=== PATIENT | female | born 1995 | race Caucasian/White ===

== ENCOUNTER 2022-12-30 02:21 | Day surgery (SDC) | payer OTHER, SELFPAY ==
--- NOTE | 2022-12-27 12:24 | PC.NURSE ---
Report to the Outpatient Waiting Room, entrance under the green pavilion located off [facility], at time 0600 on date 12/30/22. Planned Procedure Time: 0730. Time changes happen often and if your time is changed the preop area will call you the afternoon before. - You and your visitor will be asked to self-screen and do not enter if you have any COVID symptoms. - A mask is optional within the hospital at this time. Patients may have clear liquids (water, carbonated beverages, clear teas, apple juice) until 3 hours prior to surgery with a maximum of 20 ounces. - No food from midnight until time of surgery Take the following medications with a SIP of water the morning of surgery: NONE DO NOT STOP ANY OF YOUR OTHER PRESCRIPTION MEDICATIONS PRIOR TO SURGERY EXCEPT THE FOLLOWING Medications to discontinue per physician: VITAMINS Date to take last dose: NO MORE UNTIL AFTER SURGERY Please no make-up, nail swedish, hairspray, perfume, deodorant, or body powder the day of surgery. No jewelry (including any body piercings) or valuables the day of surgery, leave them at home. Please take a shower or bath the night before, or the morning of, surgery with an antibacterial soap. Wear comfortable, loose fitting clothing. - Jewelry must be removed prior to entering the operating room. Rings and piercings that are not removed may be cut off. - The hospital will not accept responsibility for valuables. - Please leave all valuables, including medications, at home the day of surgery. If you are going home after surgery, a licensed medical delivery driver must drive you home. - NO public transportation without another adult if you receive anesthesia. - We recommend that an adult stay with you for 24 hours following discharge. - We also recommend that you do not drive, make important decision, drink alcoholic beverages, or take any drugs that were not prescribed by your health care provider for at least 24 hours after your discharge time. Follow any additional instructions given to you from your surgeon. If you or anyone in your household have experienced Covid symptoms in the past week, please notify your surgeon or the nurse liaison at the phone number below for possible testing. Telephone instructions given to PT - [employer] and asked if any additional questions and then verbalized understanding. Patient advised to call surgeon office or pre surgery nurse liaison [phone] if any additional questions.
--- NOTE | 2022-12-29 06:13 | PM.IMHP ---
H&P: HPI History of Present Illness Date/Time: 12/29/22 06:13 Chief Complaint: 1st trimester missed a being Narrative: pleasant a 19 2 para 0 1 admitted with last menstrual period approximately 10 weeks ago with a missed A/ B. She had some spotty bleeding was seen in the office. Ultrasound showed a 7-8 week size with no tones risks and benefits suction D and C reviewed [facility], [facility] Family History Family History Sibling Down syndrome Father Diabetes mellitus Social History Social History Smoking status: Never smoker Second hand tobacco smoke exposure: No Alcohol intake: current Alcohol use details: RARE WHEN NOT Substance use: never Substance use type: does not use Living arrangements: with family Occupation/Education: other Additional occupation/education comments: Stay at home mom Gender identity (if verbalized by the patient): Female Sexual Orientation (if Verbalized by the Patient): Straight or Heterosexual Spiritual care concerns: No Meds Home Medications and Allergies Home Medications Medication Instructions Recorded Confirmed Type vit no.95-ferrous 1 tablet PO DAILY 08/03/19 12/27/22 History fumarate 28 mg-folic acid 800 mcg tablet () Allergies Allergy/AdvReac Type Severity Reaction Status Date / Time No Known Allergies Allergy Verified 12/27/22 12:20 Exam Const: General: cooperative, healthy appearing, comfortable and well groomed Nutritional Appearance: average body habitus Orientation/consciousness: oriented to person, oriented to place and oriented to time HENMT: Head: normal to inspection Resp: Effort & Inspection: normal respiratory effort Cardio: Rate: regular rate Rhythm: regular rhythm Heart sounds: S1 normal heart sound present and S2 normal heart sound present GI: Inspection: normal to inspection : External Female Exam: normal external appearance Speculum Exam - Vagina: normal appearance of the vagina and vaginal bleeding Speculum Exam - Cervix: normal appearance of the cervix Bimanual exam- vagina & uterus: enlarged Bimanual Exam- Adnexa, other: normal adnexae Assessment and Plan Assessment and plan (1) Incomplete : Code(s): O03.4 - Incomplete spontaneous without complication Status: Acute Plan proceed with suction dilatation curettage
--- NOTE | 2022-12-30 05:56 | WPDHPUPDATE1 ---
History and Physical Update Update Date/Time: 12/30/22 05:56 History and Physical has been reviewed, including an updated exam of the patient. There are NO changes in the patient's condition. Risks, benefits, and alternatives have been discussed and questions answered. Patient agrees to proceed with procedure.
--- NOTE | 2022-12-30 06:48 | P.PNAN_ITS ---
Anes - Initial Pre Proc Eval Procedure: Operation Date: 12/30/22 07:30 Proposed Procedures p Suction Dilation and Curettage - Steve Hunter MD Date/Time: 12/30/22 06:48 Surgeon: Steve Hunter MD Pre Op Diagnosis: missed AB Patient Data Age: 27 Gender: F Height: 1.63 m Weight: Allergies Allergy/AdvReac Type Severity Reaction Status Date / Time No Known Allergies Allergy Verified 12/27/22 12:20 Home Medications Medication Instructions Recorded Confirmed Type vit no.95-ferrous 1 tablet PO DAILY 08/03/19 12/27/22 History fumarate 28 mg-folic acid 800 mcg tablet () hydrocodone 5 mg-acetaminophen 325 1 tablet PO Q4H PRN pain #14 tabs 12/30/22 Rx mg tablet Patient hx anesthesia problems: none Family hx anesthesia problems: none Results Review: All pre-operative results and documents have been reviewed as part of the pre- operative evaluation. 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 Gender identity (if verbalized by the patient): Female Sexual Orientation (if Verbalized by the Patient): Straight or Heterosexual Spiritual care concerns: No Anes - Eval Final PreProcedure Day of Procedure 12/30/22 06:48 Patient weight: obese Heart: regular rate and rhythm Lungs: clear to auscultation Airway: Mallampati scale class II Neurological: alert and oriented Last oral intake: >/= 8 hours ASA classification: II Emergent: no Anesthetic plan: proceed Anesthesia type and monitoring: general GIVS and standard monitoring Results Review: All pre-operative results and documents have been reviewed as part of the pre- operative evaluation. Informed Consent: The patient's anesthetic plan and its attendant risks and benefits were discussed with the patient/family/POA. Questions were solicited and answers provided to the satisfaction of the patient/family/POA.
[2022-12-30] MEDS: ACETAMINOPHEN 500 MG TABLET 1000 MG PO (07:00)
[2022-12-30] MEDS: LACTATED RINGERS 1,000 ML 30 ML IV CONT (07:00)
[2022-12-30 07:04] LABS: Hematocrit 39.3 % (37.0-47.0); Hemoglobin 12.8 g/dL (12.0-15.0)
[2022-12-30 07:18] VITALS: BP 139/90; PULSE 102; RESP 14; TEMP 37.3; O2SAT 100
[2022-12-30] MEDS: LIDOCAINE HCL 1% LOCAL INJ 20 ML VIAL 10 ML INFILTRATE (07:32)
[2022-12-30] MEDS: KETOROLAC 30 MG/ML VIAL (*BKC) IV PUSH (07:38)
[2022-12-30 07:43] VITALS: BP 125/80; PULSE 98; RESP 14; O2SAT 100
--- NOTE | 2022-12-30 07:46 | P.OP_ITS ---
Procedure Note - Detailed Date of Procedure 12/30/22 Pre-op Diagnosis missed AB Post-op Diagnosis Same Procedure Performed Suction dilatation and curettage Surgeon Steve Hunter MD Anesthesia MAC and Local Indications is a 27-year-old multiparous patient with athe 1st trimester with incomplete AB Findings uterus sounded to 9cm. Tissue consistent with products of conception were noted Description of Procedure patient was prepped draped in normal sterile fashion placed in the dorsal lithotomy position. Under excellent IV sedation weighted speculum placed in posterior fornix vagina. Anterior lip of the cervix grasped with these single- tooth tenaculum. 2.5cc 1% xylocaine anesthesia placed at 2, 4, 8, 10:00 a.m. of the cervix. Uterus sounded to 9cm. Serial dilatation with fragmented dilators performed followed passes the 10. Suction curette. A small to moderate amount of tissue was removed. When a good grating sound was heard no further tissue removed instruments were withdrawn. The patient went to recovery in satisfactory condition. All sponge, needle, instrument counts were correct. There were no immediate complications. She is Rh positive Estimated Blood Loss 25 Drains No Packing No Pathology Yes Complications No immediate complications Condition Stable Disposition PACU
[2022-12-30 08:00] VITALS: BP 112/79; PULSE 81; RESP 20
--- NOTE | 2022-12-30 08:00 | SUR.PHASEII ---
0800 - A pos blood type noted.
[2022-12-30 08:25] VITALS: BP 108/70; PULSE 66; RESP 20
== END 2022-12-30 08:28 | disposition home or self-care (01) ==
PROVIDERS: Visit Provider Obstetrics & Gynecology
PROC: (CPT 59820; principal; 2022-12-30 07:30)
DX: O02.1 Missed abortion (principal); Z3A.00 Weeks of gestation of pregnancy not specified
CPT/HCPCS: 59820; 36415; 85014; 85018; 85461; 86850; 86900; 86901; 88305; A9270; J1100; J1885; J2250; J2405; J2704; J3010; J7120

== ENCOUNTER 2023-10-25 04:58 | Inpatient (IN) | payer OTHER, SELFPAY ==
[2023-10-25] VITALS (205 sets, daily range): BP systolic 72–175; BP diastolic 35–135; PULSE 68–171; RESP 18; TEMP 36.8–37.3; O2SAT 96–100; BMI 30.9
[2023-10-25 05:48] LABS: Basophils Percent Auto 0.2 % (0.2-1.2); Eosinophils Absolute Auto 0.1 K/mm3 (0-0.3); Eosinophils Percent Auto 1.5 % (0-4.4); Hematocrit 30.8 % (37.0-47.0); Hemoglobin 9.7 g/dL (12.0-15.0); Immature Granulocyte Absolute 0.03 K/mm3 (0.00-0.031); Immature Granulocyte Percent A 0.4 % (0-0.5); Lymphocytes Absolute Auto 1.96 K/mm3 (0.9-3.2); Mean Corpuscular HGB Conc 31.5 g/dl (32-36); Mean Corpuscular Hemoglobin 24.9 pg (26-34); Mean Corpuscular Volume 79.2 fl (80-100); Mean Platelet Volume 11.1 fl (7.4-10.4); Monocytes Absolute Auto 0.9 K/mm3 (0.1-0.6); Monocytes Percent Auto 10.8 % (2.6-8.5); Neutrophils Absolute Auto 5.2 K/mm3 (1.3-6.7); Neutrophils Percent Auto 63.1 % (45.5-73.1); Platelet Count Result 208 k/mm3 (150-375); Red Blood Count 3.89 M/mm3 (4.2-5.4); Red Cell Distribution Width 13.5 % (11.5-14.5); White Blood Count 8.2 K/mm3 (4.5-10.0)
[2023-10-25] MEDS: OXYTOCIN 30 UNITS/NS 500 ML 30 UNITS/500 ML BAG IV CONT (05:51)
[2023-10-25] MEDS: LACTATED RINGERS 1,000 ML 125 ML IV CONT ×2 (05:51→09:19)
--- NOTE | 2023-10-25 06:16 | PM.IMHP ---
H&P: HPI History of Present Illness Date/Time: 10/25/23 06:16 Chief Complaint: Hypertension at term Narrative: this is 3 para 1 whose last menstrual period was 01/25/2023 EDC is 11/01 presents for induction labor secondary elevated blood pressures had complicated a negative B strep diabetic screen that was blood pressures have been elevated 2 weeks her cervix is favorable and she is admitted for induction secondary to elevated pressures. PIH labs are being drawn PMFSH Family History Family History Sibling Down syndrome Father Diabetes mellitus Social History Social History Smoking status: Never smoker Second hand tobacco smoke exposure: No Alcohol intake: current Alcohol use details: RARE WHEN NOT Substance use: never Substance use type: does not use Do You Feel Safe in your Home?: Yes Lack of Transportation: No Lack of Food: Never True Current Housing: I Have Housing Concerned About Future Housing: No Difficulty Paying Gas/Electric Bills: No Difficulty Paying for Meds: No Currently Unemployed: No Education: Trade/Vocational Certificate Difficulty w/ Childcare or Family Care: No Living arrangements: with family Occupation/Education: other Additional occupation/education comments: Stay at home mom Gender identity (if verbalized by the patient): Female Sexual Orientation (if Verbalized by the Patient): Straight or Heterosexual Spiritual care concerns: No Meds Home Medications and Allergies Home Medications Medication Instructions Recorded Confirmed Type vit no.95-ferrous 1 tablet PO DAILY 08/03/19 10/25/23 History fumarate 28 mg-folic acid 800 mcg tablet () ferrous sulfate 325 mg (65 mg 325 mg PO DAILY 10/07/23 10/07/23 History iron) tablet Allergies Allergy/AdvReac Type Severity Reaction Status Date / Time No Known Allergies Allergy Verified 12/30/22 07:22 Vital Signs Vital Signs - 24 hr 10/25/23 05:39 10/25/23 05:45 10/25/23 06:00 Pulse Rate 99 96 94 Blood Pressure 134/85 127/93 H 136/80 Oxygen Delivery 10/25/23 05:31 Pulse Rate Blood Pressure Oxygen Delivery Room Air Exam Const: General: cooperative, healthy appearing, comfortable and average body habitus Nutritional Appearance: average body habitus and well nourished Orientation/consciousness: oriented to person, oriented to place and oriented to time Resp: Effort & Inspection: normal respiratory effort Cardio: Rate: regular rate Rhythm: regular rhythm Heart sounds: S1 normal heart sound present and S2 normal heart sound present GI: Inspection: normal to inspection ( gravid soft uterus) : External Female Exam: normal external appearance Speculum Exam - Vagina: normal appearance of the vagina Speculum Exam - Cervix: normal appearance of the cervix ( cervix 2.5/70/1. AROM Clear. FHTs reassuring.) H&P: Results Labs Labs: Short CBC 10/25/23 Range/Units 05:26 WBC 8.2 (4.5-10.0) K/mm3 Hgb 9.7 L D (12.0-15.0) g/dL Hct 30.8 L (37.0-47.0) % Plt Count 208 (150-375) k/mm3 Assessment and Plan Assessment and plan (1) Term : Code(s): Z34.90 - Encounter for supervision of normal , unspecified, unspecified trimester Status: Acute (2) Gestational hypertension: Code(s): O13.9 - Gestational [-induced] hypertension without significant proteinuria, unspecified trimester Status: Acute Plan PIH labs drawn. Spontaneous vaginal delivery expected. She is an epidural candidate
[2023-10-25 06:28] LABS: Alanine Aminotransferase 16 U/L (6-35); Albumin Level 3.8 g/dL (3.5-5.1); Alkaline Phosphatase 147 U/L (38-126); Anion Gap 9 mmol/L (8-16); Aspartate Amino Transferase 26 U/L (14-36); Bilirubin,Total 0.3 mg/dL (0.2-1.3); Blood Urea Nitrogen 6 mg/dL (7-17); Calcium 9.4 mg/dL (8.4-10.2); Carbon Dioxide 19 mmol/L (22-30); Chloride 107 mmol/L (98-107); Estimated Glomerular Filt Rate > 60; Glucose 89 mg/dL (65-110); Potassium 3.6 mmol/L (3.4-5.0); Sodium 135 mmol/L (137-145); Uric Acid 4.7 mg/dL (2.5-7.5)
[2023-10-25 06:37] LABS: HIV 1/2 Ab P24 Ag Result Negative (Negative)
--- NOTE | 2023-10-25 07:05 | WPDANESEPP ---
Anes - Eval Pre Procedure Procedure: Labor epidural Date/Time: 10/25/23 07:05 Surgeon: Jj Hunter Preop Diagnosis: Pain during labor Pre Op Diagnosis: IOL Patient Data Age: 28 Gender: F Height: Weight: Last Vital Signs Temp 36.8 C 10/25/23 06:20 Pulse 72 10/25/23 07:00 BP 121/66 10/25/23 07:00 O2 Del Method Room Air 10/25/23 05:31 Allergies Allergy/AdvReac Type Severity Reaction Status Date / Time No Known Allergies Allergy Verified 12/30/22 07:22 Home Medications Medication Instructions Recorded Confirmed Type vit no.95-ferrous 1 tablet PO DAILY 08/03/19 10/25/23 History fumarate 28 mg-folic acid 800 mcg tablet () ferrous sulfate 325 mg (65 mg 325 mg PO DAILY 10/07/23 10/07/23 History iron) tablet Laboratory Tests 10/25/23 05:26 WBC 8.2 K/mm3 (4.5-10.0) RBC 3.89 L M/mm3 (4.2-5.4) Hgb 9.7 L D g/dL (12.0-15.0) Hct 30.8 L % (37.0-47.0) MCV 79.2 L fl (80-100) MCH 24.9 L pg (26-34) MCHC 31.5 L g/dl (32-36) RDW 13.5 % (11.5-14.5) Plt Count 208 k/mm3 (150-375) MPV 11.1 H fl (7.4-10.4) Immature Gran % (Auto) 0.4 % (0-0.5) Neut % (Auto) 63.1 % (45.5-73.1) Lymph % (Auto) 24.0 % (18.3-44.2) [place] % (Auto) 10.8 H % (2.6-8.5) Eos % (Auto) 1.5 % (0-4.4) Baso % (Auto) 0.2 % (0.2-1.2) Lymph # (Auto) 1.96 K/mm3 (0.9-3.2) [place] # (Auto) 0.9 H K/mm3 (0.1-0.6) Eos # (Auto) 0.1 K/mm3 (0-0.3) Baso # (Auto) 0.0 K/mm3 (0.0-0.1) Abs Immat Gran (auto) 0.03 K/mm3 (0.00-0.031) Absolute Neuts (auto) 5.2 K/mm3 (1.3-6.7) Absolute Nucleated RBC 0.0 K/mm3 (0.0-0.012) Nucleated RBC % 0.0 % (0.0-0.2) Sodium 135 L mmol/L (137-145) Potassium 3.6 mmol/L (3.4-5.0) Chloride 107 mmol/L (98-107) Carbon Dioxide 19 L mmol/L (22-30) Anion Gap 9 mmol/L (8-16) BUN 6 L mg/dL (7-17) Creatinine 0.50 L mg/dL (0.7-1.0) Estim Creat Clear Calc Not Reportable Estimated GFR > 60 (59 - ) Glucose 89 mg/dL (65-110) Uric Acid 4.7 mg/dL (2.5-7.5) Calcium 9.4 mg/dL (8.4-10.2) Total Bilirubin 0.3 mg/dL (0.2-1.3) AST 26 U/L (14-36) ALT 16 U/L (6-35) Alkaline Phosphatase 147 H U/L (38-126) Total Protein 7.0 g/dL (6.3-8.2) Albumin 3.8 g/dL (3.5-5.1) RPR Pending HIV 1&2 Ab/P24 Ag 4thGn Negative (Negative) Blood Type A Positive Antibody Screen Negative Patient hx anesthesia problems: none Family hx anesthesia problems: none Results Review: All pre-operative results and documents have been reviewed as part of the pre-operative evaluation. [facility] Family History Family History Sibling Down syndrome Father Diabetes mellitus Social History Social History Smoking status: Never smoker Second hand tobacco smoke exposure: No Alcohol intake: current Alcohol use details: RARE WHEN NOT Substance use: never Substance use type: does not use Do You Feel Safe in your Home?: Yes Lack of Transportation: No Lack of Food: Never True Current Housing: I Have Housing Concerned About Future Housing: No Difficulty Paying Gas/Electric Bills: No Difficulty Paying for Meds: No Currently Unemployed: No Education: Trade/Vocational Certificate Difficulty w/ Childcare or Family Care: No Living arrangements: with family Occupation/Education: other Additional occupation/education comments: Stay at home mom Gender identity (if verbalized by the patient): Female Sexual Orientation (if Verbalized by the Patient): Straight or Heterosexual Spiritual care concerns: No Exam Day of Procedure 10/25/23 07:05 Neurological: alert and oriented
[2023-10-25] MEDS: LACTATED RINGERS 1,000 ML 999 ML IV CONT (07:07)
--- NOTE | 2023-10-25 11:05 | PM.OBPNLAB ---
Pain Control Date/time seen: 10/25/23 11:05 Pain control: tolerating well and epidural Pelvic Exam Dilation (cm): 4 Effacement (%): 70 station: -1 Amniotic membrane status: Leaking Contractions Monitor mode: Internal
[2023-10-25 12:15] LABS: Rapid Plasma Reagin Non-Reactive (NonReactive)
--- NOTE | 2023-10-25 16:13 | PM.DS ---
DS: Admitting Diagnosis Discharge Date 10/26/23 Admitting Diagnosis Term / gestational hypertension DS: Discharge Diagnosis Discharge Diagnosis (1) Gestational hypertension: Code(s): O13.9 - Gestational [-induced] hypertension without significant proteinuria, unspecified trimester Status: Acute (2) Term : Code(s): Z34.90 - Encounter for supervision of normal , unspecified, unspecified trimester Status: Acute DS: Summary Hospital Course Reason for hospitalization: patient was admitted on 10/25/2023 for induction of labor secondary to elevated blood pressures at 38 and 6 7th weeks gestation. Hospital Course: Patient underwent spontaneous vaginal delivery on 10/25/2023. Her hospital course unremarkable. Blood pressure remained stable. She was up, voiding without difficulty, ambulating, general without complaints. Time Spent with Patient Time attestation: Total time spent providing and/or coordinating discharge services: Exam Const: General: cooperative, healthy appearing and comfortable Nutritional Appearance: average body habitus Orientation/consciousness: oriented to person, oriented to place and oriented to time HENMT: Head: normal to inspection Resp: Effort & Inspection: normal respiratory effort Cardio: Rate: regular rate Rhythm: regular rhythm Heart sounds: S1 normal heart sound present and S2 normal heart sound present GI: Inspection: normal to inspection ( Fundus firm below the umbilicus) DS: Data Data Completed and Pending Labs on day of discharge: Labs from last 24 hours 10/25/23 05:26 WBC 8.2 RBC 3.89 L Hgb 9.7 L D Hct 30.8 L MCV 79.2 L MCH 24.9 L MCHC 31.5 L RDW 13.5 Plt Count 208 MPV 11.1 H Immature Gran % (Auto) 0.4 Neut % (Auto) 63.1 Lymph % (Auto) 24.0 [place] % (Auto) 10.8 H Eos % (Auto) 1.5 Baso % (Auto) 0.2 Lymph # (Auto) 1.96 [place] # (Auto) 0.9 H Eos # (Auto) 0.1 Baso # (Auto) 0.0 Abs Immat Gran (auto) 0.03 Absolute Neuts (auto) 5.2 Absolute Nucleated RBC 0.0 Nucleated RBC % 0.0 Sodium 135 L Potassium 3.6 Chloride 107 Carbon Dioxide 19 L Anion Gap 9 BUN 6 L Creatinine 0.50 L Estim Creat Clear Calc Not Reportable Estimated GFR > 60 Glucose 89 Uric Acid 4.7 Calcium 9.4 Total Bilirubin 0.3 AST 26 ALT 16 Alkaline Phosphatase 147 H Total Protein 7.0 Albumin 3.8 RPR Non-reactive HIV 1&2 Ab/P24 Ag 4thGn Negative Blood Type A Positive Antibody Screen Negative Discharge Plan Discharge Attending physician on discharge: Steve Sunshine Discharging Clinician: Steve Sunshine Patient Disposition: Home, Self-Care Activity: may shower and pelvic rest Diet: heart healthy Wound Care Instructions: follow printed instructions Patient Instructions: Antibiotic Form Stand Alone Forms: General Discharge Information Follow-up/Referrals: Steve Sunshine MD [Physician] - Discharge Medications: No Action PNV cmb#95-ferrous fumarate-FA [] 28 mg iron- 800 mcg Tablet 1 tablet PO DAILY ferrous sulfate 325 mg (65 mg iron) Tablet 325 mg PO DAILY Date of admission: 10/25/23 04:58 Primary Care Provider: PHYSICIAN,ELECTROTHERAPIST Admitting Provider: Steve Sunshine Attending physician on admission: Steve Sunshine Condition: Stable
--- NOTE | 2023-10-25 16:15 | P.PCNOB_ITS ---
OB - Vaginal Delivery Note Procedure Delivery date: 10/25/23 Events: Gestational Hypertension Induction method: AROM Delivery augmentation: Pitocin Delivery monitor: External FHT and Internal Uterine Route of delivery: Episiotomy description: None Laceration Description: Perineal - 2nd Degree Delivery repair: vicryl Specimen: No Quantitative Blood Loss (ml): 61 Anesthesia type: Epidural Disposition: Floor Complications: No immediate complications [place] Baby Date of : 10/25/23 Time of : 16:02 Weeks of gestation at delivery: 38 Infant gender: Male presentation: vertex position: Right Occiput Anterior Placenta delivery description: Spontaneous Cord Vessel Description: 3 Vessels score one minute: 9 score five minutes: 9
[2023-10-25] MEDS: OXYTOCIN 30 UNITS/NS 500 ML 30 UNITS/500 ML BAG 125 UNITS IV CONT (16:30)
[2023-10-25] MEDS: IBUPROFEN 600 MG TABLET PO (18:17)
[2023-10-25] MEDS: BENZOCAINE 20% AER SPR (*SP) 56 GM CAN 1 SPRAY TOPICAL (18:58)
[2023-10-25] MEDS: WITCH HAZEL 40 PADS 1 PAD TOPICAL (18:58)
[2023-10-25] MEDS: ACETAMINOPHEN 325 MG TABLET 650 MG PO (20:56)
[2023-10-26] MEDS: IBUPROFEN 600 MG TABLET PO (04:16)
[2023-10-26 05:00] LABS: Hematocrit 26.4 % (37.0-47.0); Hemoglobin 8.2 g/dL (12.0-15.0)
[2023-10-26 05:03] VITALS: BP 116/81; PULSE 73; RESP 18; TEMP 36.5; O2SAT 99
[2023-10-26] MEDS: MULTIVIT/MIN/PREN/FOL AC/IRON TABLET 1 TAB PO (07:24)
[2023-10-26] MEDS: POLYSACCHARIDE IRON COMPLEX 150 MG CAPSULE PO (07:24)
[2023-10-26] MEDS: ACETAMINOPHEN 325 MG TABLET 650 MG PO (07:24)
[2023-10-26 07:49] VITALS: BP 116/78; PULSE 82; RESP 16; TEMP 36.5; O2SAT 100
--- NOTE | 2023-10-26 07:51 | PM.OBPNVD ---
OB - PN: Subj Subjective Date/time seen: 10/26/23 07:51 Patient comments: no complaints and pain well controlled baby status: other (transferred) OB - PN: Obj Data Labs 10/26/23 04:22 10/25/23 05:26 Labs: Laboratory Results - last 24 hr 10/25/23 10/26/23 05:26 04:22 Hgb 8.2 L Hct 26.4 L RPR Non-reactive OB - PN A/P Plan day: 1 Plan: routine care, discharge home and follow up 6 weeks Time Spent With Patient Time: Total time spent is greater than 50% in coordination of care (as documented) at patient's floor/unit and/or counseling patient: Time with patient: less than 15 minutes
--- NOTE | 2023-10-26 07:54 | WPDANLDPN2 ---
Anes-Prog Note L&D Date/Time: 10/26/23 07:54 Neuro status: Neuro function grossly intact. Cardiovascular status: normal Respiratory status: normal Airway patency: baseline Mental status: baseline Post-Op hydration status: normal Vital Signs: Last Vital Signs Temp 36.5 C 10/26/23 07:49 Pulse 82 10/26/23 07:49 Resp 16 10/26/23 07:49 BP 116/78 10/26/23 07:49 Pulse Ox 100 10/26/23 07:49 O2 Del Method Room Air 10/25/23 19:49 Pain score (VAS): 0 I/O: Intake & Output 10/25/23 10/25/23 10/26/23 15:59 23:59 07:59 Intake Total 1000 Output Total 800 861 Balance 200 -861 Post-procedural complaints: none Patient feedback: Patient satisfied with anesthetic care.
== END 2023-10-26 08:50 | disposition home or self-care (01) | DRG 807 ==
LOC: ANHLDR 16:15 → ANHOB2 18:49
PROVIDERS: Admitting Provider Obstetrics & Gynecology; Visit Provider Obstetrics & Gynecology
DX: O13.4 Gestational [pregnancy-induced] hypertension without significant proteinuria, complicating childbirth (principal); Z37.0 Single live birth; O70.1 Second degree perineal laceration during delivery; Z3A.38 38 weeks gestation of pregnancy
CPT/HCPCS: 36415; 80053; 84550; 85014; 85018; 85025; 86592; 86703; 86850; 86900; 86901; A9270; G0432; J2590; J2795; J7120